=== PATIENT | male | born 2000 | race Caucasian/White ===

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

== ENCOUNTER → 2020-01-02 | Outpatient (CLI) | payer MEDICARE ==
[~2020-01-02] MED LIST: FERROUSAL325 MG PO; MASON NATURAL2000 IU PO; PRINIVIL10 MG PO; RENO CAPS1 SGL PO; RENVELA800 MG PO
== END ==
LOC: ZCOL.LAB 15:48
DX: Z20.828 Contact with and (suspected) exposure to other viral communicable diseases (principal)

== ENCOUNTER → 2020-03-22 | Outpatient (CLI) | payer MEDICARE | LOC: ZCOL.LAB 20:08 | DX: Z20.828 Contact with and (suspected) exposure to other viral communicable diseases (principal) ==

== ENCOUNTER 2020-09-11 19:44 | Emergency (ER) | payer BC, MEDICARE, MEDICAID ==
[~2020-09-11] VITALS: Ht 180.3 cm; Wt 104.5 kg
[2020-09-11 21:15] VITALS: BP 141/85; PULSE 81; TEMP 97.8
== END 2020-09-11 21:15 | disposition home or self-care (01) ==
LOC: COL.ER 19:44
DX: S02.2XXA Fracture of nasal bones, initial encounter for closed fracture (principal); N18.6 End stage renal disease; Z99.2 Dependence on renal dialysis; W51.XXXA Accidental striking against or bumped into by another person, initial encounter; Y93.67 Activity, basketball